=== PATIENT | female | born 1950 | race Caucasian/White ===

== ENCOUNTER → 2016-06-19 | Day surgery (SDC) | payer BC ==
[2016-06-16 12:34] VITALS: Ht 147.3 cm; Wt 81.4 kg
[~2016-06-19] VITALS: Ht 147.3 cm; Wt 81.4 kg
[~2016-06-19] MED LIST: IRBE-39 PO; LEVO25TA5 PO; MELO15TA4 PO; PANT40TA PO; SODIUM CHLORIDE 0.9% 500ML 500 ML IV ONE
[2016-06-19 10:30] VITALS: TEMP 36.7
--- NOTE | 2016-06-19 10:43 | Endo History and Physical ---
History & Physical Date of Service: Jun 19, 2016. Chief Complaint: recurrent bowel obstructions and anemia Referring Physician: Dr. Tyson Hidalgo History of Present Illness concern for Crohn's disease Past Surgical History Hx Cardiac Surgery: No Hx Internal Defibrillator: No Hx Pacemaker: No Hx Abdominal Surgery: Yes ( X 2, PHU, SHARA) Hx of Implantable Prosthesis: No Hx Post-Op Nausea and Vomiting: No Hx Cancer Surgery: No Hx Thoracic Surgery: No Hx Orthopedic: Yes (RT TKA) Hx Urinary Tract Surgery: No Family History None Social History Smoking Status: Never Smoker Hx Substance Use: No Hx Alcohol Use: No Allergies Coded Allergies: Sulfa Antibiotics (Verified Allergy, Unknown, SICK IN STOMACH, 06/16/16) Uncoded Allergies: SEAFOOD (Allergy, Unknown, SICK IN STOMACH, 06/16/16) Current Medications Reported Home Medications Medications Dose Route/Sig Max Daily Dose Days Date Category Levothyroxine Sodium 25 Mcg Tab 1 Tab PO QAM 90 06/16/16 Reported Mobic (Meloxicam) 15 Mg Tab 15 Mg PO QAM 06/16/16 Reported Protonix (Pantoprazole Sodium) 40 Mg Tab 40 Mg PO QAM 06/16/16 Reported Avapro (Irbesartan) 300 Mg Tab 1 Tab PO QAM 90 06/16/16 Reported Vital Signs Weight (Kilograms): 81.36 Height (Feet): 4 Height (Inches): 10 Date Time Temp Pulse Resp B/P Pulse Ox O2 Delivery O2 Flow Rate FiO2 06/19/16 10:32 208/87 06/19/16 10:31 223/120 06/19/16 10:30 36.7 98 18 125/113 98 Room Air Physical Exam General Appearance: WD/WN, no apparent distress Assessment and Plan colonoscopy with intubation of TI today
--- NOTE | 2016-06-19 11:50 | Discharge Instructions ---
Endoscopy Patient Instructions Date / Procedure(s) Performed Jun 19, 2016. Colonoscopy Allergy Information Coded Allergies: Sulfa Antibiotics (Verified Allergy, Unknown, SICK IN STOMACH, 06/16/16) Uncoded Allergies: SEAFOOD (Allergy, Unknown, SICK IN STOMACH, 06/16/16) Discharge Date / Findings Jun 19, 2016. ileitis Medication Instructions Stopped Medication(s): took Mobic yesterday Restart Stopped Medication(s): OK to resume home medications as above Provider Instructions Activity Restrictions - No exercising or heavy lifting for 24 hours. - Do not drink alcohol the day of the procedure. - Do not drive a car or operate machinery until the day after the procedure. - Do not make any important decisions or sign important papers in 24 hours after the procedure. Following Day: - Return to full activity which may include returning to work/school. Diet Start your diet with liquids and light foods (jello, soup, juice, toast). Then eat your usual diet if not nauseated. Treatment For Common After Affects For mild abdominal pain, bloating, or excessive gas: - Rest - Eat lightly - Lie on right side Follow-Up Information Follow-up with Dr. Tyson Hidalgo as scheduled Anesthesia Information What You Should Know You have had a procedure that required some medicine to reduce anxiety and discomfort. This treatment is called moderate sedation. After receiving the treatment, you may be sleepy, but you will be able to breathe on your own. The effects of the treatment may last for several hours. Follow these instructions along with Activity/Diet recommendations noted above: * Do NOT do anything where dizziness or clumsiness would be dangerous. * Rest quietly at home today, then you can be up and about tomorrow. * Have a responsible person stay with you the rest of today. * You may have had an I.V. today. If so, you may take the dressing off later today. Recommendations Call your doctor if: * Trouble breathing * Continuous vomiting for more than 24 hours * Temperature above 101 degrees * Severe abdominal pain or bloating * Pain not relieved by pain medicine ordered * There is increased drainage or redness from any incision * A large amount of rectal bleeding greater than 2-3 tablespoons. (If you had a polyp/s removed or have hemorrhoids, a small amount of blood - from the rectum is to be expected.) * You have any unanswered questions or concerns. IN THE EVENT OF A SERIOUS EMERGENCY, GO TO THE NEAREST EMERGENCY ROOM Your discharge instructions were prepared by provider Ivis Vazquez. Patient Instructions Signature Page Saige Mendez Patient (or Guardian) Signature/Date: I have read and understand the instructions given to me by my caregivers. Caregiver/RN/Doctor Signature/Date: The above-named patient and/or guardian has received patient instructions on this date. + Original Patient Signature Page (only) stays with chart. Please make copy for patient.
--- NOTE | 2016-06-19 11:50 | GI REPORT ---
Procedure Date: 06/19/2016 11:15 AM Procedure: Colonoscopy Indications: Suspected Crohn's disease of the small bowel, Generalized abdominal pain, Change in bowel habit - recurrent small bowel obstructions Medicines: See the Anesthesia note for documentation of the administered medications Complications: No immediate complications. Estimated blood loss: Minimal. Estimated Blood Loss: Estimated blood loss was minimal. Procedure: Pre-Anesthesia Assessment: - Prior to the procedure, a History and Physical was performed, and patient medications, allergies and sensitivities were reviewed. The patient's tolerance of previous anesthesia was reviewed. - The risks and benefits of the procedure and the sedation options and risks were discussed with the patient. All questions were answered and informed consent was obtained. - Patient identification and proposed procedure were verified prior to the procedure by the physician and the nurse. The procedure was verified in the pre-procedure area in the procedure room. - Mental Status Examination: alert and oriented. Airway Examination: normal oropharyngeal airway and neck mobility. Respiratory Examination: clear to auscultation. CV Examination: normal. Abdominal Examination: bowel sounds present, abdomen soft and non-tender, no masses or organomegaly noted. - ASA Grade Assessment: II - A patient with mild systemic disease. After I obtained informed consent, the scope was passed under direct vision. Throughout the procedure, the patient's blood pressure, pulse, and oxygen saturations were monitored continuously. The scope was introduced through the anus and advanced to 8 cm into the ileum. The colonoscopy was performed without difficulty. The patient tolerated the procedure well. The quality of the bowel preparation was good. Findings: The perianal and digital rectal examinations were normal. Pertinent negatives include normal sphincter tone and no palpable rectal lesions. The terminal ileum contained multiple ulcers. No bleeding was present. Biopsies were taken with a cold forceps for histology. Verification of patient identification for the specimen was done by the physician and nurse using the patient's name and date. Estimated blood loss was minimal. The colon (entire examined portion) appeared normal. Biopsies were taken with a cold forceps for histology. Verification of patient identification for the specimen was done by the physician and nurse using the patient's name and date. Estimated blood loss was minimal. The retroflexed view of the distal rectum and anal verge was normal and showed no anal or rectal abnormalities. Impression: - Multiple ulcers in the terminal ileum raising concern for Crohn's disease. Biopsied. - The entire examined colon is normal. Biopsied. - The distal rectum and anal verge are normal on retroflexion view. Recommendation: - Await pathology results. - Discharge patient to home. Ivis Vazquez D.O. Ivis Vazquez, 06/19/2016 11:49:47 AM This report has been signed electronically. Note Initiated On: 06/19/2016 11:15 AM I attest to the content of the Intraoperative Record and orders documented therein, exceptions below
--- NOTE | 2016-06-19 12:12 | Anesthesiology Progress Note ---
Anesthesia Post Op Note Date & Time Jun 19, 2016 at 12:12 Vital Signs Pain Intensity: 0 Vital Signs Past 12 Hours Date Time Temp Pulse Resp B/P Pulse Ox O2 Delivery O2 Flow Rate FiO2 06/19/16 12:00 83 16 133/78 98 Room Air 06/19/16 11:45 88 16 116/78 97 Room Air 06/19/16 10:32 208/87 06/19/16 10:31 223/120 06/19/16 10:30 36.7 98 18 125/113 98 Room Air Notes Mental Status: alert / awake / arousable, participated in evaluation Pt Amnestic to Procedure: Yes Nausea / Vomiting: adequately controlled Pain: adequately controlled Airway Patency, RR, SpO2: stable & adequate BP & HR: stable & adequate Hydration State: stable & adequate Anesthetic Complications: no major complications apparent Pt doing well.
[2016-06-19 12:15] VITALS: BP 152/84; PULSE 81; O2SAT 100
== END | disposition home or self-care (01) ==
LOC: C.GI 09:58
PROVIDERS: ATTEND Internal Medicine
DX: K52.9 Noninfective gastroenteritis and colitis, unspecified (principal); K50.00 Crohn's disease of small intestine without complications; D64.9 Anemia, unspecified; K63.3 Ulcer of intestine; Z98.890 Other specified postprocedural states; Z88.2 Allergy status to sulfonamides